=== PATIENT | male | born 1960 | race Caucasian/White ===

== ENCOUNTER → 2019-03-19 | Outpatient (CLI) | payer OTHER | LOC: YCFC.O 07:00 | PROVIDERS: ATTEND Family Medicine | DX: R53.83 Other fatigue (principal); M19.90 Unspecified osteoarthritis, unspecified site; I10 Essential (primary) hypertension; E78.5 Hyperlipidemia, unspecified; R79.89 Other specified abnormal findings of blood chemistry; Z12.5 Encounter for screening for malignant neoplasm of prostate ==

== ENCOUNTER → 2019-12-21 | Outpatient (CLI) | payer SELFPAY | LOC: YCFC.O 15:17 | PROVIDERS: ATTEND Family Medicine | DX: Z03.818 Encounter for observation for suspected exposure to other biological agents ruled out (principal); R50.9 Fever, unspecified ==